=== PATIENT | female | born 1950 | race Caucasian/White ===

== ENCOUNTER 2019-07-20 05:59 | Day surgery (SDC) | payer MEDICARE ==
[2019-07-19 10:54] VITALS: BMI 28.3
[2019-07-20 06:29] LABS: #Basophils 0.1 thou/uL (0.0-0.2); #Eosinphils 0.2 thou/uL (0.0-0.7); #Lymphocytes 3.4 thou/uL (1.20-3.40); #Monocytes 0.7 thou/uL (0.11-0.59); #Neutrophils 3.9 thou/uL (1.40-6.50); %Basophils 1.1 % (0.0-1.0); %Eosinophils 2.9 % (0.0-10.0); %Lymphocytes 40.6 % (21.0-51.0); %Monocytes 8.5 % (0.0-10.0); Hemoglobin 13.1 g/dL (12.0-16.0); Mean Corpuscular HGB CONC 33.4 g/dL (32.0-36.0); Mean Corpuscular Hemoglobin 30.2 pg (27.0-31.0); Mean Corpuscular Volume 90.5 fL (78.0-98.0); Mean Platelet Volume 8.3 fL (7.4-10.4); Platelet Count 254 thou/uL (130-400); RBC Distribution Width 12.4 % (11.5-14.5); Red Blood Cell (RBC) Count 4.32 mill/uL (4.20-5.40); White Blood Cell (WBC) Count 8.3 thou/uL (4.8-10.8)
[2019-07-20] MEDS ORDERED: Lidocaine 2% Jelly 5 ML TUBE ONE (06:34)
[2019-07-20] MEDS ORDERED: Fentanyl 100 MCG/2 ML VIAL ONE (06:34)
[2019-07-20] MEDS ORDERED: Bupivacaine/Epinephrine 0.25% 30 ML VIAL ONE (06:47)
[2019-07-20 06:52] LABS: ALT (SGPT) 15 U/L (8-55); AST (SGOT) 14 U/L (5-34); Albumin 4.1 g/dL (3.4-4.8); Alkaline Phosphatase 56 U/L (40-150); Anion Gap 9 mmol/L (10-20); BUN (Urea Nitrogen) 20 mg/dL (9.8-20.1); Bilirubin, Total 0.8 mg/dL (0.2-1.2); Calc. Creatinine Clearance 66 mL/min (70-130); Calcium 9.7 mg/dL (7.8-10.44); Carbon Dioxide 27 mmol/L (23-31); Chloride 106 mmol/L (98-107); Estimated GFR-MDRD 69; Globulin 2.5 g/dL (2.4-3.5); Glucose 93 mg/dL (80-115); Protein, Total 6.6 g/dL (6.0-8.3); Sodium 139 mmol/L (136-145)
[2019-07-20 07:02] LABS: Potassium 2.9 mmol/L (3.5-5.1)
--- NOTE | 2019-07-20 12:28 | OP ---
DATE OF PROCEDURE: 07/20/2019 PREOPERATIVE DIAGNOSIS: Incisional ventral hernia. PROCEDURE PERFORMED: Open ventral hernia repair with mesh. INDICATIONS: A 68-year-old female, who had a previous open colon resection, who developed a painful bulge in the epigastrium. FINDINGS: About a 6 cm area of swelling, but a 1.5 cm defect containing preperitoneal fat. DESCRIPTION OF PROCEDURE: After informed consent was obtained, the patient was taken to the operating room and given general endotracheal anesthesia, placed in the supine position. Abdomen was prepped and draped in usual fashion. Local anesthesia was infiltrated subcutaneously and deep, and an upper midline incision was performed. Subcu divided sharply. The hernia sac was ill-defined and very fragile and thin. It was able to find it and dissected circumferentially down to the fascia. Preperitoneal fat was excised. The defect was exposed. Its fascial edges exposed. Redundant hernia was reduced. The defect was 1.5 cm. A 6.4 cm round Proceed mesh was prepared and inserted intra-abdominally. It was then spread out and pulled up. The wings were sutured to the fascia laterally with interrupted 0 Ethibond, then superior and inferior with 0 Ethibond. Then, the hemostasis was achieved. Subcu was irrigated. Subcu was closed with interrupted 3-0 Vicryl. Skin was closed with a running subcuticular 4-0 Rapide. Steri-Strips were applied. Sterile bandage was applied as well as a compression bandage with own abdominal binder. The patient tolerated the procedure well, transferred to Recovery in good condition. Sponge and needle count verified correct x2. Job ID: [id number]
--- NOTE | 2019-07-21 17:06 | EKG ---
Test Reason : PREOP Blood Pressure : / mmHG Vent. Rate : 081 BPM Atrial Rate : 081 BPM P-R Int : 160 ms QRS Dur : 104 ms QT Int : 410 ms P-R-T Axes : 066 -04 054 degrees QTc Int : 476 ms Normal sinus rhythm Non-specific intra-ventricular conduction delay Abnormal ECG Confirmed by MARLIN CRUZ ([id number]) on 07/21/2019 5:06:30 PM Referred By: DORYS Confirmed By:MARLIN CRUZ
== END 2019-07-20 10:10 | disposition home or self-care (01) ==
LOC: SDC 05:59
PROVIDERS: ATTEND Surgery
PROC: 0WUF0JZ Supplement Abdominal Wall with Synthetic Substitute, Open Approach (ICD-10-PCS; principal; 2019-07-20)
DX: K43.2 Incisional hernia without obstruction or gangrene (principal); I10 Essential (primary) hypertension; K21.9 Gastro-esophageal reflux disease without esophagitis; K44.9 Diaphragmatic hernia without obstruction or gangrene; Z79.899 Other long term (current) drug therapy; Z88.5 Allergy status to narcotic agent; Z88.4 Allergy status to anesthetic agent; Z90.49 Acquired absence of other specified parts of digestive tract
CPT/HCPCS: 36415; 80053; 85025; 93005; 93010; J0131; J0690; J3010

== ENCOUNTER 2019-09-07 15:17 | Outpatient (CLI) | payer MEDICARE ==
--- NOTE | 2019-09-07 16:56 | MMO ---
Bilateral MAMMO Bilat Screen [facility]. CLINICAL HISTORY: Patient is 68 years old and is seen for screening. The patient has no family history of breast cancer. The patient has no personal history of cancer. VIEWS: The views performed were: bilateral craniocaudal with tomosynthesis and bilateral mediolateral oblique with tomosynthesis. FILMS COMPARED: The present examination has been compared to prior imaging studies performed at [facility] on 05/11/2013, 11/28/2014, 01/07/2016 and 01/08/2017. This study has been interpreted with the assistance of computer-aided detection. MAMMOGRAM FINDINGS: There are scattered fibroglandular densities. There are no suspicious masses, suspicious calcifications, or new areas of architectural distortion. IMPRESSION: THERE IS NO MAMMOGRAPHIC EVIDENCE OF MALIGNANCY. A ROUTINE FOLLOW-UP MAMMOGRAM IN 1 YEAR IS RECOMMENDED. THE RESULTS OF THIS EXAM WERE SENT TO THE PATIENT. ACR BI-RADS Category 1 - Negative MAMMOGRAPHY NOTE: 1. A negative mammogram report should not delay a biopsy if a dominant of clinically suspicious mass is present. 2. Approximately 10% to 15% of breast cancers are not detected by mammography. 3. Adenosis and dense breasts may obscure an underlying neoplasm. Reported by: MAMTA CHILDS MD Electonically Signed: [id number]
== END 2019-09-07 15:18 | disposition home or self-care (01) ==
LOC: BICMAMMO 15:17
PROVIDERS: ATTEND Obstetrics & Gynecology
DX: Z12.31 Encounter for screening mammogram for malignant neoplasm of breast (principal)
CPT/HCPCS: 77063; 77067

== ENCOUNTER 2019-11-15 17:48 | Observation (INO) | payer MEDICARE ==
--- NOTE | 2019-11-15 20:02 | RAD ---
EXAM: Portable chest PROVIDED CLINICAL HISTORY: Chest pain COMPARISON: None FINDINGS: Cardiac and mediastinal silhouette is within normal limits. No focal consolidation, pleural fluid or pneumothorax evident. IMPRESSION: No evidence for an acute cardiopulmonary process.
[2019-11-15 20:13] LABS: Bacteria/HPF 4+ HPF (None Seen); Bilirubin Negative (Negative); Blood, Urine Negative (Negative); Clarity Turbid (Clear); Glucose, Urine (Dipstick) Normal (Negative); Leukocyte 250 Leu/uL (Negative); Nitrite Negative (Negative); Protein, Urine (Dipstick) 30 mg/dL (Neg-Trace); Urobilinogen Normal mg/dL (Less than 2); WBC/HPF 21-50 HPF (0-3)
[2019-11-15 20:18] LABS: #Basophils 0.1 thou/uL (0.0-0.2); #Eosinphils 0.2 thou/uL (0.0-0.7); #Lymphocytes 3.2 thou/uL (1.20-3.40); #Neutrophils 8.5 thou/uL (1.40-6.50); %Basophils 0.4 % (0.0-1.0); %Eosinophils 1.6 % (0.0-10.0); %Lymphocytes 24.3 % (21.0-51.0); %Monocytes 7.9 % (0.0-10.0); %Neutrophils 65.8 % (42.0-75.0); Mean Corpuscular HGB CONC 35.1 g/dL (32.0-36.0); Mean Corpuscular Hemoglobin 31.4 pg (27.0-31.0); Mean Corpuscular Volume 89.4 fL (78.0-98.0); Mean Platelet Volume 8.9 fL (7.4-10.4); Platelet Count 290 thou/uL (130-400); RBC Distribution Width 12.2 % (11.5-14.5); Red Blood Cell (RBC) Count 4.47 mill/uL (4.20-5.40)
[2019-11-15 20:42] LABS: ALT (SGPT) 12 U/L (8-55); AST (SGOT) 19 U/L (5-34); Albumin 4.1 g/dL (3.4-4.8); Alkaline Phosphatase 84 U/L (40-110); Anion Gap 17 mmol/L (10-20); BUN (Urea Nitrogen) 38 mg/dL (9.8-20.1); Bilirubin, Total 0.5 mg/dL (0.2-1.2); CK (CPK) 62 U/L (29-168); Calc. Creatinine Clearance 0 mL/min (70-130); Calcium 10.5 mg/dL (7.8-10.44); Carbon Dioxide 22 mmol/L (23-31); Chloride 101 mmol/L (98-107); Estimated GFR-MDRD 19; Glucose 102 mg/dL (80-115); Magnesium 1.8 mg/dL (1.6-2.6); Potassium 3.5 mmol/L (3.5-5.1); Protein, Total 7.1 g/dL (6.0-8.3); Sodium 136 mmol/L (136-145)
[2019-11-15] MEDS ORDERED: cefTRIAXone\\ROCEPHIN 1 GM VIAL ONE (21:58)
[2019-11-15] MEDS ORDERED: Sodium Chloride 0.9% 1,000 ML IV SCH (23:29)
[2019-11-15 23:37] VITALS: BMI 29.2
[2019-11-16] MEDS: Acetaminophen 325 MG TAB PO PRN ×2 (00:34→14:39)
[2019-11-16] MEDS ORDERED: Ondansetron ODT 4 MG TAB PO PRN (01:40)
[2019-11-16] MEDS ORDERED: Calcium Carbonate 500 MG ChewTAB PO PRN (01:40)
[2019-11-16] MEDS ORDERED: Ondansetron PF 4 MG/2 ML Vial IVP PRN (01:40)
[2019-11-16] MEDS ORDERED: Amlodipine 5 MG TAB PO PRN (01:42)
[2019-11-16] MEDS ORDERED: Sodium Chloride 0.9% 1,000 ML IV SCH (01:45)
--- NOTE | 2019-11-16 01:48 | HP ---
CHIEF COMPLAINT: Generalized weakness. PRIMARY CARE: Dr. Gallo. HISTORY OF PRESENT ILLNESS: The patient is a 68-year-old female with hypertension and recurrent UTIs, presented to the emergency room with above complaints. Over the last 24 hours, the patient has been feeling generally weak and fatigued. She felt dizzy and clammy. She checked her blood pressure, which was low. Normally, her blood pressure runs between 120s to 130s. There is no recent change in her medications. She had one episode of nausea and vomiting earlier today. She has chronic diarrhea due to colonic resection. She denies any fever or chills. No dysuria or hematuria reported. In the emergency room, workup was consistent with urinary tract infection. She received 1 dose of Rocephin. PAST MEDICAL HISTORY: 1. Hypertension. 2. Chronic diarrhea due to colonic resection. 3. Osteoporosis. 4. History of renal stone. PAST SURGICAL HISTORY: 1. Umbilical hernia repair. 2. Colonic resection. 3. Tonsillectomy. 4. Hysterectomy. ALLERGIES: THE PATIENT IS ALLERGIC TO PROPOFOL AND HYDROCODONE. HOME MEDICATION: Lisinopril 20 mg daily. FAMILY HISTORY: Negative for heart disease. SOCIAL HISTORY: The patient currently lives at home with her , who is the decision maker. She is full code. No smoking, alcohol, or drug use. REVIEW OF SYSTEMS: All other review of systems reviewed and was found negative. PHYSICAL EXAMINATION: VITAL SIGNS: Temperature 98.2, respirations of 19, pulse rate of 103, blood pressure of 104/65, and O2 saturation 98% on room air. GENERAL: A 68-year-old female, ill appearing. HEENT: Head, atraumatic and normocephalic. Sclerae anicteric. Dry mucous membranes. No oral lesion. NECK: Supple. No JVD appreciated. No carotid bruit. LUNGS: Clear to auscultation bilaterally. No wheezing, rales, or rhonchi. HEART: S1 and S2 present. Regular rate and rhythm. No rubs or gallops. ABDOMEN: Soft, nontender. Bowel sounds present. No rebound or guarding. EXTREMITIES: No edema or calf tenderness. NEUROLOGIC: Grossly nonfocal. Moves all 4 extremities. PSYCHIATRIC: Alert, awake, and oriented x3. Normal affect. PERIPHERAL VASCULAR: Radial pulses palpable bilaterally, low volume. SKIN: Warm and dry. LYMPH NODES: No palpable lymph nodes in the neck. LABORATORY FINDINGS: WBC 13 with hemoglobin 14, hematocrit 40, platelet 290. Chemistry showed sodium 136, potassium 3.5, chloride 101, bicarb 22, BUN 38, creatinine 2.52. Baseline creatinine is 0.82. Lactic acid was 1.6. Troponin was negative. Urinalysis showed 21 to 50 wbc's with 4+ bacteria. EKG by my review showed sinus rhythm without significant ST-T wave changes. IMPRESSION: 1. Acute kidney injury on chronic kidney disease stage 2, suspected prerenal etiology. 2. Sepsis secondary to urinary tract infection. 3. History of recurrent urinary tract infections. 4. Dehydration causing hypotension. 5. History of hypertension. 6. Metabolic acidosis, probably secondary to renal failure. PLAN: The patient will be monitored on the medical floor. We will continue IV hydration. Continue IV ceftriaxone. Recheck orthostatic vitals in a.m. Hold lisinopril for now. We will obtain renal ultrasound. We will check postvoid residual. Walking program. Urine cultures have been sent. Plan of care was discussed with the patient in detail. She stated understanding. Job ID: [id number]
[2019-11-16 07:19] LABS: #Eosinphils 0.3 thou/uL (0.0-0.7); #Lymphocytes 2.9 thou/uL (1.20-3.40); #Monocytes 0.8 thou/uL (0.11-0.59); #Neutrophils 4.4 thou/uL (1.40-6.50); %Basophils 0.3 % (0.0-1.0); %Eosinophils 3.6 % (0.0-10.0); %Lymphocytes 34.3 % (21.0-51.0); %Monocytes 9.6 % (0.0-10.0); %Neutrophils 52.1 % (42.0-75.0); Mean Corpuscular HGB CONC 32.6 g/dL (32.0-36.0); Mean Corpuscular Hemoglobin 29.9 pg (27.0-31.0); Mean Corpuscular Volume 91.5 fL (78.0-98.0); Mean Platelet Volume 8.6 fL (7.4-10.4); Platelet Count 238 thou/uL (130-400); RBC Distribution Width 12.1 % (11.5-14.5); White Blood Cell (WBC) Count 8.5 thou/uL (4.8-10.8)
[2019-11-16 07:40] LABS: Anion Gap 11 mmol/L (10-20); BUN (Urea Nitrogen) 33 mg/dL (9.8-20.1); Calc. Creatinine Clearance 43 mL/min (70-130); Calcium 9.5 mg/dL (7.8-10.44); Carbon Dioxide 24 mmol/L (23-31); Chloride 111 mmol/L (98-107); Estimated GFR-MDRD 40; Glucose 101 mg/dL (80-115); Magnesium 1.7 mg/dL (1.6-2.6); Sodium 143 mmol/L (136-145)
[2019-11-16 07:46] LABS: Potassium 2.9 mmol/L (3.5-5.1)
[2019-11-16] MEDS ORDERED: Bisacodyl 10 MG SUPP PR PRN (07:57)
[2019-11-16] MEDS ORDERED: Artificial Tears 18 DROP/0.9 ML EA EYE PRN (07:57)
[2019-11-16] MEDS ORDERED: Cepastat Lozenges 1 LOZ PO PRN (07:57)
[2019-11-16] MEDS ORDERED: Sodium Chloride 0.65% Nasal 44 ML BOT EA NARE PRN (07:57)
[2019-11-16] MEDS ORDERED: Diabetic Tussin 200 MG/10 ML UDCUP PO PRN (07:57)
[2019-11-16] MEDS ORDERED: Loratadine 10 MG TAB PO PRN (07:57)
[2019-11-16] MEDS ORDERED: Loperamide HCl 2 MG CAP PO PRN (07:57)
[2019-11-16] MEDS ORDERED: Senokot S 8.6-50 MG TAB PO PRN (07:57)
[2019-11-16] MEDS ORDERED: Zolpidem Tartrate 5 MG TAB PO PRN (07:57)
[2019-11-16] MEDS ORDERED: Potassium Chloride 20 MEQ TAB PO SCH (08:00)
[2019-11-16] MEDS: 1/2 NS w/KCL 20 mEq 1,000 ML IV SCH ×2 (08:47→17:36)
[2019-11-16] MEDS: Multivit, Therapeutic 1 TAB PO SCH (08:48)
[2019-11-16] MEDS: Saccharomyces boulardii 250 MG CAP PO SCH (08:48)
[2019-11-16 08:52] LABS: Phosphorus 4.1 mg/dL (2.3-4.7)
--- NOTE | 2019-11-16 12:02 | PDOC.HOSPP ---
- Subjective Encounter Date: 11/16/19 Encounter Time: 09:30 Subjective: Patient seen and examined. No new complaints. No overnight events - Objective Vital Signs & Weight: Vital Signs (12 hours) Temp Pulse Resp BP BP BP Pulse Ox 11/16/19 11:30 97.7 F 87 20 120/79 97 11/16/19 08:00 97.9 F 83 20 147/81 H 127/82 137/78 95 11/16/19 04:32 98.5 F 82 16 97/60 92 L Weight Weight 149 lb 12.8 oz Result Diagrams: 11/16/19 06:57 11/16/19 06:57 Radiology Reviewed by me: Yes Hospitalist ROS - Review of Systems ENT: denies: ear pain, ear discharge, nose pain, nose discharge, nose congestion , mouth pain, mouth swelling, throat pain, throat swelling, other Respiratory: denies: cough, dry, shortness of breath, hemoptysis, SOB with excertion, pleuritic pain, sputum, wheezing, other Cardiovascular: denies: chest pain, palpitations, orthopnea, paroxysmal noc. dyspnea, edema, light headedness, other Gastrointestinal: denies: nausea, vomiting, abdominal pain, diarrhea, constipation, melena, hematochezia, other Genitourinary: denies: dysuria, frequency, incontinence, hematuria, retention, other Musculoskeletal: denies: neck pain, shoulder pain, arm pain, back pain, hand pain, leg pain, foot pain, other - Medication Medications: Active Medications Generic Name Dose Route Start Last Admin Trade Name Freq PRN Reason Stop Dose Admin Acetaminophen 650 mg 11/16/19 00:25 11/16/19 00:34 Tylenol PO 650 mg Q12H PRN Administration Headache/Fever/MILD Pain 1-3 Potassium Chloride/Sodium Chloride 1,000 mls @ 100 mls/hr 11/16/19 08:00 12/05 08:47 1/2 Ns W/Kcl 20 Meq IV 1,000 mls .Q10H MARIELLA Administration Multivitamins 1 tab 11/16/19 09:00 11/16/19 08:48 Theragran PO 1 tab DAILY MARIELLA Administration Saccharomyces Boulardii 250 mg 11/16/19 09:00 11/16/19 08:48 Florastor PO 250 mg DAILY MARIELLA Administration Sodium Chloride 10 ml 11/16/19 09:00 11/16/19 08:48 Flush - Normal Saline IVF Not Given Q12HR MARIELLA - Exam General Appearance: NAD, awake alert Eye: PERRL, anicteric sclera ENT: normocephalic atraumatic, no oropharyngeal lesions Neck: supple, symmetric, no JVD, no thyromegaly Heart: RRR, no murmur, no gallops, no rubs Respiratory: CTAB, no wheezes, no rales, no ronchi Gastrointestinal: soft, non-tender, non-distended, normal bowel sounds Extremities: no cyanosis, no clubbing, no edema Skin: normal turgor, no lesions Neurological: no focal deficits Musculoskeletal: normal tone, normal strength Psychiatric: normal affect, normal behavior Hosp A/P (1) Acute kidney failure Status: Acute (2) Sepsis Code(s): A41.9 - SEPSIS, UNSPECIFIED ORGANISM Status: Acute Qualifiers: Sepsis acute organ dysfunction status: without acute organ dysfunction (3) Hypotension Status: Resolved (4) UTI (urinary tract infection) Status: Acute (5) Weakness generalized Code(s): R53.1 - WEAKNESS Status: Acute (6) Personal history of other diseases of the circulatory system Code(s): Z86.79 - PERSONAL HISTORY OF OTHER DISEASES OF THE CIRCULATORY SYSTEM Status: Chronic (7) Hypokalemia Code(s): E87.6 - HYPOKALEMIA Status: Acute - Plan old records reviewed/req, continue antibiotics 11/16/19 continue rocephin change ivf 2 ns with kcl replace potassium repeat labs tomorrow follow culture medication reviewed and continue to provide symptomatic treatment
--- NOTE | 2019-11-16 12:14 | ULT ---
US Renal Bilateral STANDARD: 11/16/2019 7:00 AM CLINICAL HISTORY: Acute kidney injury. STUDY: Renal ultrasound COMPARISON: None. FINDINGS: Right kidney: Echogenicity: Normal. Masses/cysts: None. Hydronephrosis: None. Calcifications: 9 mm nonobstructing calcification Length: 9.7 cm Left kidney: Echogenicity: Normal. Masses/cysts: Anechoic cysts measuring up to 3.0 cm in size Hydronephrosis: None. Calcifications: None. Length: 10.8 cm Limited visualization of the urinary bladder is unremarkable. IMPRESSION: 1. Nonobstructing right renal calcification 2. Left renal cysts
[2019-11-16] MEDS ORDERED: Enoxaparin Sodium 30 MG/0.3 ML SYRINGE SC SCH (21:00)
[2019-11-16] MEDS ORDERED: cefTRIAXone\\ROCEPHIN 1 GM in Sodium Chloride 0.9% 100 ML IVPB SCH (22:00)
[2019-11-17] MEDS: Acetaminophen 325 MG TAB PO PRN (04:12)
[2019-11-17] MEDS: 1/2 NS w/KCL 20 mEq 1,000 ML IV SCH (04:12)
[2019-11-17 06:40] LABS: #Eosinphils 0.3 thou/uL (0.0-0.7); #Lymphocytes 2.9 thou/uL (1.20-3.40); #Monocytes 0.6 thou/uL (0.11-0.59); #Neutrophils 4.1 thou/uL (1.40-6.50); %Basophils 0.6 % (0.0-1.0); %Eosinophils 3.2 % (0.0-10.0); %Lymphocytes 36.7 % (21.0-51.0); %Monocytes 7.8 % (0.0-10.0); %Neutrophils 51.8 % (42.0-75.0); Hemoglobin 11.7 g/dL (12.0-16.0); Mean Corpuscular HGB CONC 34.7 g/dL (32.0-36.0); Mean Corpuscular Hemoglobin 31.3 pg (27.0-31.0); Mean Corpuscular Volume 90.2 fL (78.0-98.0); Mean Platelet Volume 8.4 fL (7.4-10.4); Platelet Count 227 thou/uL (130-400); Red Blood Cell (RBC) Count 3.74 mill/uL (4.20-5.40)
[2019-11-17 06:58] LABS: Anion Gap 10 mmol/L (10-20); BUN (Urea Nitrogen) 19 mg/dL (9.8-20.1); Calc. Creatinine Clearance 76 mL/min (70-130); Calcium 8.3 mg/dL (7.8-10.44); Carbon Dioxide 24 mmol/L (23-31); Chloride 112 mmol/L (98-107); Estimated GFR-MDRD 78; Glucose 93 mg/dL (80-115); Potassium 3.7 mmol/L (3.5-5.1); Sodium 142 mmol/L (136-145)
[2019-11-17] MEDS: Multivit, Therapeutic 1 TAB PO SCH (09:25)
[2019-11-17] MEDS: Saccharomyces boulardii 250 MG CAP PO SCH (09:25)
--- NOTE | 2019-11-17 12:16 | DIS ---
DATE OF ADMISSION: 11/15/2019 DATE OF DISCHARGE: 11/17/2019 PRIMARY CARE PHYSICIAN: Handy Gallo MD DISCHARGE DISPOSITION: Home. PRIMARY DISCHARGE DIAGNOSES: 1. Acute kidney failure, improved. 2. Hypokalemia, corrected. 3. Sepsis, resolved. 4. Urinary tract infection. 5. Hypotension, resolved. SECONDARY DISCHARGE DIAGNOSIS: Hypertension. PRIMARY PROCEDURE/OPERATION: None. RADIOLOGICAL INVESTIGATION: Chest x-ray on admission showed no acute cardiopulmonary process. Renal ultrasound was unremarkable other than nonobstructing right renal calcification and left renal cyst. SIGNIFICANT LABORATORY DATA: WBC 8.0, hemoglobin 11.7, platelet 227. Sodium 142, potassium 3.7, BUN 19, creatinine 0.74, calcium 8.3. LFT normal. Urinalysis suggestive of UTI. Urine culture is negative by the time of dictation. DISCHARGE MEDICATIONS: 1. Amlodipine 5 mg p.o. daily. 2. Cipro 250 mg p.o. b.i.d. for 5 days. CONTRAINDICATION: None. CODE STATUS: Full code. INPATIENT CLUBHOUSE MANAGER: None. ALLERGIES: HYDROCODONE AND PROPOFOL. DISCHARGE PLAN: Posthospital, the patient will follow up with primary care physician in one week. HOSPITAL COURSE: This is a 68-year-old female with above-mentioned medical problem, who was admitted by Dr. Gustavo Purvis. Please see his H and P for further details. On admission, the patient was having low blood pressure at home and she was feeling dizzy and clammy. The patient's blood pressure was running low and she was found with acute kidney injury while in hospital. Her admission creatinine was 2.52. The patient was given IV fluid and her renal function improved to 0.74. Her potassium was low, which was also replaced and corrected. Her urine culture was negative by the time of discharge. While in hospital, she was treated with Rocephin. On discharge, we changed to Cipro for another 5 days. The patient wants to go home. The patient is feeling much better. The patient is seen and examined at bedside today. PHYSICAL EXAMINATION: VITAL SIGNS: Currently, temperature 98.3, pulse 77, respiratory rate 16, saturation 98% on room air, blood pressure 137/89. GENERAL: The patient is currently alert and oriented x3. No acute distress. HEENT: Head, normocephalic and atraumatic. Eyes, pupils are round and reactive to light. Extraocular muscle intact. ENT, oropharynx within normal limits. Moist mucous membranes. No oral lesion. No pharyngeal erythema. No exudate. NECK: Supple. No JVD. No thyromegaly. LUNGS: Clear to auscultation without any rhonchi or rales. CARDIAC: S1 and S2, regular without any murmur. No gallop. No rub. ABDOMEN: Soft. Bowel sounds present. Nontender. Nondistended. No organomegaly. No mass. EXTREMITIES: No edema. Good distal pulsation. NEUROLOGIC: Nonfocal examination. The patient is medically stable for discharge today. Job ID: [id number]
--- NOTE | 2019-11-17 12:32 | PDOC.EVN ---
Event Note - Event Note Event Note: Patient case reviewed as a member of the UR committee. Discussed with the physician attending. Patient's clinical scenario is consistent with an Observation stay and therefore appropriate for a Code 44 transition to Observation Status.
[2019-11-17 15:12] VITALS: BP 131/89; TEMP 97.7
== END 2019-11-17 14:18 | disposition home or self-care (01) ==
LOC: ERS 17:48 → T4-B 23:27 → INTOOBSV 23:27
PROVIDERS: ADMIT Internal Medicine; ATTEND Internal Medicine
DX: N17.9 Acute kidney failure, unspecified (principal); I12.9 Hypertensive chronic kidney disease with stage 1 through stage 4 chronic kidney disease, or unspecified chronic kidney disease; N18.3 Chronic kidney disease, stage 3 (moderate); A41.9 Sepsis, unspecified organism; N39.0 Urinary tract infection, site not specified; I95.9 Hypotension, unspecified; E86.0 Dehydration; E87.2 Acidosis; E87.6 Hypokalemia; K52.9 Noninfective gastroenteritis and colitis, unspecified; M81.0 Age-related osteoporosis without current pathological fracture; Z90.49 Acquired absence of other specified parts of digestive tract; Z88.5 Allergy status to narcotic agent; Z88.8 Allergy status to other drugs, medicaments and biological substances; Z79.899 Other long term (current) drug therapy
CPT/HCPCS: 71045; 76770; 80048 ×2; 80053; 82550; 83605; 83735 ×2; 84100; 84484; 85025 ×3; 87077; 87086; 93005; 96361; 96374; 96376; 97139; 99285; G0378 ×4; 36415; 81003; 81015; J0696; J1650; J3480; J3490

== ENCOUNTER 2020-12-21 13:00 | Outpatient (CLI) | payer MEDICARE, OTHER ==
--- NOTE | 2020-12-21 16:19 | CT ---
CT ABDOMEN AND PELVIS WITHOUT CONTRAST: 12/21/20 HISTORY: Right ureteral stone. COMPARISON: CT scan with and without IV contrast of 05/11/17. FINDINGS: Absence of oral and IV contrast reduces the sensitivity for the exam particularly for evaluation of s olid organs and bowel. There are mild dependent changes in the lung bases. No calcified gallstones are seen. A small hiatal hernia is present. No free air or free fluid is seen in the abdomen or pelvis. There are bilateral renal calculi measuring up to 3 mm. No calculi is seen in the ureters or the urin clif bladder. No hydroureteronephrosis noted on either side. The hyperdense mass arising from the ante rior cortex of the left kidney on the previous study have increased in size measuring 2.2 cm (previou sly 1.7 cm). This demonstrates an attenuation value of greater than 70 Hounsfield units and is consis tent with a proteinaceous or hemorrhagic cyst. Other cystic masses arising from the left kidney are a gain seen. The small bowel loops are not abnormally dilated. The patient is post hysterectomy. There is colonic diverticulosis. Degenerative changes are seen in the spine. There is an 18 mm cyst in the right lobe of the liver. IMPRESSION: 1. Nonobstructing bilateral renal calculi. 2. Left renal cyst. 3. Colonic diverticulosis. POS: MZA
== END 2020-12-21 13:01 | disposition home or self-care (01) ==
LOC: BICCT 13:00
PROVIDERS: ATTEND Urology
DX: N20.1 Calculus of ureter (principal); N20.0 Calculus of kidney; N28.1 Cyst of kidney, acquired; K57.30 Diverticulosis of large intestine without perforation or abscess without bleeding
CPT/HCPCS: 74176

== ENCOUNTER 2022-09-03 13:25 | Outpatient (CLI) | payer MEDICARE, OTHER ==
[2022-09-03 14:56] LABS: #Basophils 0.1 10x3/uL (0.0-0.2); #Eosinphils 0.2 10x3/uL (0.0-0.5); #Monocytes 0.8 10x3/uL (0.0-1.1); #Neutrophils 4.1 10x3/uL (1.5-8.4); %Basophils 0.9 % (0.0-2.0); %Eosinophils 2.3 % (0.0-6.0); %Lymphocytes 30.7 % (18.0-47.0); %Monocytes 10.3 % (0.0-10.0); %Neutrophils 55.4 % (40.0-75.0); Mean Corpuscular HGB CONC 32.7 g/dL (32.0-36.0); Mean Corpuscular Hemoglobin 29.5 pg (27.0-33.0); Mean Corpuscular Volume 90.2 fl (81.6-98.3); Mean Platelet Volume 10.8 fl (7.4-10.4); Platelet Count 266 10x3/uL (150-450); RBC Distribution Width 14.1 % (11.5-14.5); White Blood Cell (WBC) Count 7.5 10x3/uL (3.5-10.5)
[2022-09-03 15:16] LABS: ALT (SGPT) 10 U/L (8-55); AST (SGOT) 13 U/L (5-34); Albumin 4.2 g/dL (3.4-4.8); Alkaline Phosphatase 60 U/L (40-110); Anion Gap 13 mmol/L (10-20); BUN (Urea Nitrogen) 22 mg/dL (9.8-20.1); Bilirubin, Total 0.4 mg/dL (0.2-1.2); Calc. Creatinine Clearance 0 mL/min (70-130); Calcium 9.7 mg/dL (7.8-10.44); Carbon Dioxide 27 mmol/L (23-31); Chloride 109 mmol/L (98-107); Estimated GFR 75; Globulin 2.5 g/dL (2.4-3.5); Glucose 90 mg/dL (83-110); Potassium 3.7 mmol/L (3.5-5.1); Protein, Total 6.7 g/dL (5.8-8.1); Sodium 145 mmol/L (136-145)
== END 2022-09-03 13:26 | disposition home or self-care (01) ==
LOC: LABBT 13:25
PROVIDERS: ATTEND Surgery
DX: Z01.818 Encounter for other preprocedural examination (principal); K43.2 Incisional hernia without obstruction or gangrene
CPT/HCPCS: 80053; 85025; 93005; 93010

== ENCOUNTER 2022-09-08 06:52 | Inpatient (IN) | payer MEDICARE, OTHER ==
[2022-09-08] MEDS ORDERED: fentaNYL Citrate/PF 100 MCG/2 ML SYRINGE ONE (10:20)
[2022-09-08] MEDS ORDERED: Famotidine/PF 20 mg/2ml Vial ONE (10:20)
[2022-09-08] MEDS ORDERED: EPINEPHrine 1 MG/ML AMP ONE (10:25)
[2022-09-08] MEDS ORDERED: Bupivacaine 0.25% HCL 30 ML VIAL ONE (10:25)
[2022-09-08] MEDS ORDERED: Phenylephrine 10 MG/ML VIAL ONE (10:37)
[2022-09-08] MEDS ORDERED: Sodium Chloride 0.9% 100 ML ONE (10:38)
[2022-09-08] MEDS ORDERED: CEFAZOLIN 2 GM VIAL ONE (10:38)
[2022-09-08] MEDS ORDERED: PROPOFOL 200 MG/20 ML VIAL ONE (10:48)
[2022-09-08] MEDS ORDERED: Ketorolac Tromethamine 30 MG/ML VIAL ONE (10:48)
[2022-09-08] MEDS ORDERED: Ondansetron PF 4 MG/2 ML Vial ONE (10:48)
[2022-09-08] MEDS ORDERED: Rocuronium Bromide 10 MG/ML (10ML VIAL) ONE (10:48)
[2022-09-08] MEDS ORDERED: Dexamethasone 20 MG/5 ML VIAL ONE (10:48)
[2022-09-08 11:15] VITALS: BMI 28.9
[2022-09-08] MEDS ORDERED: SUGAMMADEX SODIUM 200 MG/2 ML VIAL ONE (12:17)
[2022-09-08] MEDS ORDERED: Promethazine HCl 25 MG/ML VIAL IM PRN ×3 (12:31→12:39)
[2022-09-08] MEDS ORDERED: hydrALAZINE 20 MG/ML VIAL SLOW IVP PRN (12:31)
[2022-09-08] MEDS ORDERED: HYDROmorphone 0.5 MG/0.5 ML SYRINGE ONE ×2 (12:34→12:53)
[2022-09-08] MEDS ORDERED: FENTANYL 500 MCG/10 ML VIAL 2,000 MCG in Sodium Chloride 0.9% 60 ML IV PRN (12:39)
[2022-09-08] MEDS ORDERED: Ondansetron PF 4 MG/2 ML Vial IVP PRN (12:39)
[2022-09-08] MEDS ORDERED: Zolpidem Tartrate 5 MG TAB PO PRN (12:39)
[2022-09-08] MEDS ORDERED: Naloxone HCl 0.4 mg/ml Vial IV PRN (12:39)
[2022-09-08] MEDS ORDERED: diphenhydrAMINE 50 MG/ML VIAL IM PRN (12:39)
[2022-09-08] MEDS ORDERED: diphenhydrAMINE 50 MG/ML VIAL IVP PRN (12:39)
[2022-09-08] MEDS ORDERED: Promethazine HCl 25 MG/ML VIAL IVPB PRN (12:39)
[2022-09-08] MEDS ORDERED: diphenhydrAMINE 25 MG CAP PO PRN (12:39)
[2022-09-08] MEDS ORDERED: Ondansetron HCl/PF 4 MG/2 ML Vial IVP PRN (12:39)
[2022-09-08] MEDS ORDERED: HYDROmorphone 2 MG/ML VIAL SLOW IVP PRN (12:39)
[2022-09-08] MEDS ORDERED: Communication Order-Pharmacy FS SCH (12:45)
[2022-09-08] MEDS ORDERED: hydrALAZINE 20 MG/ML VIAL ONE (13:52)
[2022-09-08] MEDS ORDERED: CEFAZOLIN 2 GM in Sodium Chloride 0.9% 100 ML IVPB SCH (14:00)
[2022-09-08] MEDS: Sodium Chloride 0.9% 1,000 ML IV SCH ×2 (17:14→18:31)
[2022-09-08] MEDS: Ondansetron PF 4 MG/2 ML Vial IVP PRN (17:22)
[2022-09-08] MEDS: Ketorolac Tromethamine 30 MG/ML VIAL IVP SCH ×2 (18:24→23:57)
[2022-09-08] MEDS: CEFAZOLIN 2 GM in Sodium Chloride 0.9% 100 ML IVPB SCH (18:27)
[2022-09-08] MEDS: Famotidine 20 MG TAB PO SCH (20:53)
[2022-09-08] MEDS: Famotidine/PF 20 mg/2ml Vial SLOW IVP SCH (20:54)
[2022-09-09] MEDS: CEFAZOLIN 2 GM in Sodium Chloride 0.9% 100 ML IVPB SCH (02:31)
[2022-09-09] MEDS: Sodium Chloride 0.9% 1,000 ML IV SCH ×2 (02:34→05:45)
[2022-09-09] MEDS: Ondansetron PF 4 MG/2 ML Vial IVP PRN (04:01)
[2022-09-09] MEDS: Ketorolac Tromethamine 30 MG/ML VIAL IVP SCH ×2 (05:45→12:10)
[2022-09-09 05:47] LABS: #Basophils 0.1 thou/uL (0.0-0.2); #Lymphocytes 1.3 thou/uL (1.20-3.40); #Monocytes 1.3 thou/uL (0.11-0.59); %Basophils 0.4 % (0.0-1.0); %Eosinophils 0.2 % (0.0-10.0); %Lymphocytes 9.1 % (21.0-51.0); %Neutrophils 81.4 % (42.0-75.0); Hemoglobin 12.4 g/dL (12.0-16.0); Mean Corpuscular HGB CONC 32.5 g/dL (32.0-36.0); Mean Corpuscular Hemoglobin 30.4 pg (27.0-31.0); Mean Corpuscular Volume 93.6 fl (78.0-98.0); Mean Platelet Volume 8.5 fL (7.4-10.4); Platelet Count 254 thou/uL (130-400); RBC Distribution Width 12.7 % (11.5-14.5); Red Blood Cell (RBC) Count 4.08 mill/uL (4.20-5.40); White Blood Cell (WBC) Count 14.8 thou/uL (4.8-10.8)
[2022-09-09 06:10] LABS: Anion Gap 11 mmol/L (10-20); BUN (Urea Nitrogen) 11 mg/dL (9.8-20.1); Calc. Creatinine Clearance 65 mL/min (70-130); Calcium 7.8 mg/dL (7.8-10.44); Carbon Dioxide 24 mmol/L (23-31); Chloride 109 mmol/L (98-107); Estimated GFR 75; Glucose 121 mg/dL (83-110); Potassium 3.6 mmol/L (3.5-5.1); Sodium 140 mmol/L (136-145)
[2022-09-09] MEDS ORDERED: DC PCA Order Set 1 EACH FS SCH (07:35)
[2022-09-09] MEDS ORDERED: Morphine 4 MG/ML VIAL SLOW IVP PRN ×2 (07:35→07:55)
[2022-09-09] MEDS ORDERED: Morphine 2 MG/ML VIAL SLOW IVP PRN (07:35)
[2022-09-09] MEDS ORDERED: oxyCODONE/Acetaminophen 5 mg/325 mg Tablet PO PRN ×2 (07:37)
[2022-09-09] MEDS: Famotidine 20 MG TAB PO SCH (07:48)
[2022-09-09] MEDS: Famotidine/PF 20 mg/2ml Vial SLOW IVP SCH (07:48)
[2022-09-09] MEDS ORDERED: Enoxaparin Sodium 40 MG/0.4 ML SYRINGE SC SCH (09:00)
[2022-09-09 11:56] VITALS: BP 144/85; TEMP 98.1
== END 2022-09-09 13:15 | disposition home or self-care (01) | DRG 337 ==
LOC: SDC 06:52 → SJJU 14:31
PROVIDERS: ADMIT Surgery; ATTEND Surgery
PROC: 0WUF4JZ Supplement Abdominal Wall with Synthetic Substitute, Percutaneous Endoscopic Approach (ICD-10-PCS; principal; 2022-09-08)
PROC: 0DNU4ZZ Release Omentum, Percutaneous Endoscopic Approach (ICD-10-PCS; 2022-09-08)
DX: K43.2 Incisional hernia without obstruction or gangrene (principal); I10 Essential (primary) hypertension; Z90.710 Acquired absence of both cervix and uterus; Z88.5 Allergy status to narcotic agent
CPT/HCPCS: 36415; 80048; 85025; C1781; J0171; J0360; J1100; J1170; J1650; J1885; J2370; J2405; J2550; J2704; J3490; J7050; S0020; S0028

== ENCOUNTER 2022-10-02 13:44 | Outpatient (CLI) | payer MEDICARE, OTHER | END 2022-10-02 13:45 | disposition home or self-care (01) | LOC: BICMAMMO 13:44 | PROVIDERS: ATTEND Internal Medicine | DX: Z12.31 Encounter for screening mammogram for malignant neoplasm of breast (principal); N63.20 Unspecified lump in the left breast, unspecified quadrant | CPT/HCPCS: 77063; 77067 ==

== ENCOUNTER 2022-10-16 14:30 | Outpatient (CLI) | payer MEDICARE, OTHER | END 2022-10-16 14:31 | disposition home or self-care (01) | LOC: BICMAMMO 14:30 | PROVIDERS: ATTEND Internal Medicine | DX: N63.20 Unspecified lump in the left breast, unspecified quadrant (principal) | CPT/HCPCS: 76642; 77065; G0279 ==